=== PATIENT | female | born 1955 | race Caucasian/White ===

== ENCOUNTER → 2023-03-25 | Day surgery (SDC) | payer MEDICARE ==
[~2023-03-25] VITALS: Ht 160 cm; Wt 86.2 kg
[~2023-03-25] MED LIST: LOSARTAN POTASS25 M1 PO; MELOXICAM15 MG PO; PROZAC20 MG PO; SYNTHROID,LEVO75 MCG PO
[2023-03-25 14:16] VITALS: BP 125/67
[2023-03-25 16:54] VITALS: BP 130/71
[2023-03-25 17:09] VITALS: BP 141/88
== END | disposition home or self-care (01) ==
LOC: SDC 03-24 08:45
PROVIDERS: ATTEND Specialist
DX: H81.21 Vestibular neuronitis, right ear (principal); G47.33 Obstructive sleep apnea (adult) (pediatric); H90.3 Sensorineural hearing loss, bilateral; Z79.899 Other long term (current) drug therapy; I10 Essential (primary) hypertension; K21.9 Gastro-esophageal reflux disease without esophagitis; Z90.89 Acquired absence of other organs; Z98.890 Other specified postprocedural states; Z88.8 Allergy status to other drugs, medicaments and biological substances